=== PATIENT | male | born 1945 | race Asian ===

== ENCOUNTER 2020-04-04 00:50 | Inpatient (IN) | payer MEDICARE ==
[2020-04-04 01:45] LABS: #Lymphocytes 0.9 thou/uL (1.20-3.40); #Monocytes 0.5 thou/uL (0.11-0.59); #Neutrophils 10.4 thou/uL (1.40-6.50); %Basophils 0.4 % (0.0-1.0); %Eosinophils 0.3 % (0.0-10.0); %Lymphocytes 7.4 % (21.0-51.0); %Monocytes 3.9 % (0.0-10.0); %Neutrophils 88.1 % (42.0-75.0); Hemoglobin 11.5 g/dL (14.0-18.0); Mean Corpuscular HGB CONC 34.2 g/dL (32.0-36.0); Mean Corpuscular Hemoglobin 33.2 pg (27.0-31.0); Mean Platelet Volume 6.9 fL (7.4-10.4); Platelet Count 262 thou/uL (130-400); Red Blood Cell (RBC) Count 3.47 mill/uL (4.70-6.10); White Blood Cell (WBC) Count 11.8 thou/uL (4.8-10.8)
[2020-04-04 02:13] LABS: Anion Gap 19 mmol/L (10-20); BUN (Urea Nitrogen) 19 mg/dL (8.4-25.7); Calc. Creatinine Clearance 0 mL/min (70-130); Carbon Dioxide 20 mmol/L (23-31); Chloride 99 mmol/L (98-107); Estimated GFR-MDRD 33; Glucose 196 mg/dL (83-110); Sodium 135 mmol/L (136-145)
[2020-04-04 02:16] LABS: Potassium 2.6 mmol/L (3.5-5.1)
[2020-04-04] MEDS ORDERED: Potassium Chloride 20 MEQ TAB ONE (02:44)
[2020-04-04] MEDS ORDERED: Enoxaparin Sodium 60 MG/0.6 ML SYRINGE ONE (02:49)
--- NOTE | 2020-04-04 03:02 | PDOC.HHP ---
Hospitalist HPI - History of Present Illness chest pain History of Present Illness: PCP; Dr. Garrett Patient presents for evaluation of chest pain, Patient presents for evaluation of Transfer from [place]. Patient presented for chest pain at that facility at 2300 hrs. on 12/2019 his initial set of vital signs had a blood pressure of 95/67 and a pulse rate of 66. His EKG shows rate controlled atrial fibrillation with no ST segment changes chest x-ray shows cardiomegaly with pacemaker wire placement laboratory analysis show a normal white count hemoglobin of 11 and normal platelets patient's troponin is slightly elevated at 0.034. The patient has a very elevated BNP level of 1900. Patient's metabolic panel reveals a potassium of 2.3. A creatinine of 2. Oral potassium was given. Aspirin and Lasix. ED Course: Vital Signs: BP: 100/65, Pulse: 67, Resp: 16, Temp: 97.5 (Oral), O2 sat: 100 on (Room Air), Time: 04/04/2020 01:07. Medication administration: potassium chloride oral 40 mEq Oral Given 03:00 04/04/2020 Lovenox 1 mg/kg Subcutaneous Given 02:59 04/04/2020 Hospitalist Results - Labs Result Diagrams: 04/04/20 01:38 04/04/20 01:38 Lab results: WBC 11.8 thou/uL (4.8-10.8) H 04/04/20 01:38 Hgb 11.5 g/dL (14.0-18.0) L 04/04/20 01:38 Hct 33.7 % (42.0-52.0) L 04/04/20 01:38 MCV 97.0 fL (78.0-98.0) 04/04/20 01:38 Plt Count 262 thou/uL (130-400) 04/04/20 01:38 Neutrophils % 88.1 % (42.0-75.0) H 04/04/20 01:38 Sodium 135 mmol/L (136-145) L 04/04/20 01:38 Potassium 2.6 mmol/L (3.5-5.1) L* 04/04/20 01:38 Chloride 99 mmol/L (98-107) 04/04/20 01:38 Carbon Dioxide 20 mmol/L (23-31) L 04/04/20 01:38 BUN 19 mg/dL (8.4-25.7) 04/04/20 01:38 Creatinine 1.97 mg/dL (0.7-1.3) H 04/04/20 01:38 Glucose 196 mg/dL (83-110) H 04/04/20 01:38 Calcium 8.0 mg/dL (7.8-10.44) 04/04/20 01:38 Troponin I 0.058 ng/mL (< 0.028) H 04/04/20 01:38 B-Natriuretic Peptide 1162.4 pg/mL (0-100) H 04/04/20 01:38 - EKG Interpretation EKG: Rate of 73 atrial fibrillation with occasional premature ventricular contraction. Normal axis QRS duration is widened. Patient there is 0.[address] segment elevation in lead III. Lead V4 has J-point elevation of approximately 1 mm. This pattern is not consistent with a ST elevation myocardial infarction.
[2020-04-04 05:49] VITALS: BMI 17.6
[2020-04-04] MEDS ORDERED: Nitroglycerin 2% Ointment 1 INCH/1 GM Packet TOP SCH (06:00)
[2020-04-04] MEDS ORDERED: Sodium Chloride 0.9% (PF) 10 ML VIAL FS PRN (06:15)
[2020-04-04] MEDS: Ondansetron PF 4 MG/2 ML Vial IVP PRN ×2 (06:44→07:42)
[2020-04-04 07:13] LABS: Troponin I 5.991 ng/mL (< 0.028)
[2020-04-04] MEDS ORDERED: Promethazine HCl 25 MG/ML VIAL SLOW IVP SCH (07:45)
[2020-04-04] MEDS ORDERED: Ondansetron PF 4 MG/2 ML Vial IVP SCH (07:45)
[2020-04-04 07:49] VITALS: TEMP 97.5
[2020-04-04] MEDS ORDERED: Potassium Chloride 20 MEQ in Premix Bag 1 BAG IVPB SCH (09:00)
[2020-04-04] MEDS ORDERED: Pantoprazole 40 MG VIAL IVP SCH (09:00)
[2020-04-04 09:16] VITALS: BP 105/67
[2020-04-04] MEDS ORDERED: Nitroglycerin 0.4 MG TAB (25 Tab Bottle) SL PRN (09:44)
[2020-04-04] MEDS ORDERED: Guaifenesin DM 100-10/5 ML UDCUP PO PRN (09:44)
[2020-04-04] MEDS ORDERED: Acetaminophen 325 MG TAB PO PRN (09:44)
[2020-04-04] MEDS ORDERED: Potassium Chloride 20 MEQ in Lactated Ringer's 1,000 ML IV SCH (09:45)
[2020-04-04 09:50] LABS: Troponin I 22.972 ng/mL (< 0.028)
[2020-04-04] MEDS ORDERED: Vancomycin HCl 25 MG/ML Oral PO SCH (10:00)
[2020-04-04] MEDS: Morphine 2 MG/ML VIAL SLOW IVP PRN ×2 (10:33→10:42)
--- NOTE | 2020-04-04 11:28 | HP ---
REASON FOR ADMISSION: Non-ST elevation [place], C difficile colitis, acute kidney injury, CHF exacerbation with likely underlying cardiomyopathy, hypokalemia. HISTORY OF PRESENT ILLNESS: Please note, the patient is a very poor historian. He apparently had the chest pain and had gone to [place] [facility]. He says that he has had chest pain on and Sunday, which was a constant pain. This kind of resolved and the patient started to have diarrhea from last 2 days, which was perfuse watery and smelly. He has also had intractable nausea and vomiting. He has not been able to keep anything down. Currently, he has no complaints of chest pain. He still has diarrhea. His C difficile stool test has come back positive. The patient is very hard of hearing as well. PAST MEDICAL AND SURGICAL HISTORY: History of coronary artery disease with prior stent. He has had prior AICD placed, which apparently the battery is run out and he has not had any replacement and the details of which is not so sure. Diabetes mellitus type 2, dyslipidemia, appendectomy. CURRENT MEDICATIONS: The patient states he stopped all his medications except for amlodipine, which is not sure of the exact dose. He says it was not doing any good, but is unable to explain anything further. ALLERGIES: NO KNOWN DRUG ALLERGIES. PERSONAL HISTORY: Smokes occasionally. Does not abuse alcohol or drugs. Lives with his . FAMILY HISTORY: He states both his parents are . The mother was in her 70s and father was in his 80s. He does not know the exact cause of their . CODE STATUS: Full. Power of insurance defense attorney is his . REVIEW OF SYSTEMS: CONSTITUTIONAL: Negative for weight loss or gain, ability to conduct usual activities. SKIN: Negative for rash, itching. EYES: Negative for double vision, pain. ENT/MOUTH: Negative for nose bleeding, neck stiffness, pain, tenderness. CARDIOVASCULAR: Negative for palpitations, dyspnea on exertion, orthopnea. RESPIRATORY: Negative for shortness of breath, wheezing, cough, hemoptysis, fever or night sweats. GASTROINTESTINAL: Negative for poor appetite, abdominal pain, heartburn, nausea, vomiting, constipation, or diarrhea. GENITOURINARY: Negative for urgency, frequency, dysuria, nocturia. MUSCULOSKELETAL: Negative for pain, swelling. NEUROLOGIC/PSYCHIATRIC: Negative for anxiety, depression. ALLERGY/IMMUNOLOGIC: Negative for skin rash, bleeding tendency. PHYSICAL EXAMINATION: GENERAL: The patient is a 75-year-old male, who is currently not in any acute distress. VITAL SIGNS: Blood pressure 100/66, pulse 66 per minute, respiratory rate 18 per minute, temperature 97.5 degrees Fahrenheit, and saturating 100% on room air. NECK: Supple. There is elevated JVD. HEENT: Eyes; extraocular muscles intact. Pupils reacting to light. Oral cavity, mucous membranes are dry. No exudates or congestion. CARDIOVASCULAR SYSTEM: S1 and S2 heard. Murmur plus. RESPIRATORY: Air entry 1+ bilateral. Scattered rhonchi. No rales or wheezes. ABDOMEN: Soft. Bowel sounds heard. No tenderness, rigidity, or guarding. EXTREMITIES: Mild peripheral edema. No calf tenderness. VASCULAR SYSTEM: Peripheral pulses 1+ bilateral. No ischemic ulcerations or gangrene. CENTRAL NERVOUS SYSTEM: No gross focal motor deficits noted. 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 PSYCHIATRIC SYSTEM: The patient's mood is euthymic. No hallucinations or delusions. LABORATORY DATA: EKG done shows bifascicular block at 66 beats per minute, has underlying atrial fibrillation, which is rate controlled. Chest x-ray done shows no acute cardiopulmonary process. Stool for C difficile is positive. White count of 11, H and H of 11 and 33, platelet count is 262, MCV 97 with 88% neutrophils. Potassium 2.6, serum bicarb 20, BUN 19, creatinine 1.9, and serum glucose 196. Troponin has gone up to 22.97. CK-MB was 1.209 on the first set. BNP 1900. CLINICAL IMPRESSION AND PLAN: The patient will be admitted to telemetry for non-ST elevation myocardial infarction, acute kidney injury, Clostridium difficile colitis, multiple electrolyte abnormalities including acute kidney injury and clinically has moderate dehydration with profuse diarrhea and intractable nausea and vomiting. His BNP is elevated. Likely, the patient has underlying cardiomyopathy. He will be on Lovenox 50 mg subcu q.12 hourly and will be closely monitored for any bleeding with Clostridium difficile colitis and underlying inflammation in the colon. He will be on aspirin 81 mg, Lipitor 40 mg daily. This was a small dose of Lopressor, which will be discontinued if he gets bradycardic. Nitroglycerin paste half-inch q.[address] him on lactated Ringer's with 20 mEq of potassium at 75 mL per hour. Vancomycin 125 mg orally q.6 hourly for Clostridium difficile. His electrolytes will be slowly corrected. Echo with 2D Doppler for LV function will be obtained. A COVID-19 PCR result is pending. We will obtain a printout of his AICD/pacemaker to see if it is working. The patient has multiple medical issues. His prognosis is guarded. We will continue to closely monitor him on telemetry. I have tried calling, Ms. Andi Colon, the patient's spouse on [phone] and I am unable to talk to her. I am unable to connect to her. Job ID: [id number]
--- NOTE | 2020-04-04 11:49 | CON ---
DATE OF CONSULTATION: 04/04/2020 INDICATION FOR CONSULTATION: A 75-year-old patient with chest pain. HISTORY OF PRESENT ILLNESS: This is a very unfortunate 75-year-old gentleman, who is almost deaf, has a history of coronary artery disease, has undergone angioplasty and stent placement to uncertain vessel or vessels. He has also has an implantable AICD, uncertain of his past cardiac history. He is a very poor historian. He is unable to give much further history, but he was admitted after he complained of chest pain. He has been having nausea and vomiting and diarrhea for several days. He was hypokalemic with a potassium of 2.6. His troponin I was elevated slightly at 0.058, it has increased up to 5.9, and it further increased to 22.9. EKG did show atrial fibrillation with right bundle branch block, occasional PVCs and what appears to be an anterior septal myocardial infarction, which may be evolving with uncertain of his past medical history. At this time, the patient also has C. diff with diarrhea, which is due to C. diff and also has been complaining of some nausea and vomiting. He is not a very good candidate at this time to take to the cardiac solar lab technician due to his GI issues and he continues to have some chest discomfort, but at this time, no further acute ST-segment elevation on the EKG, but he continued to have a right bundle branch block. He also has had some intermittent nonsustained ventricular tachycardia, but does have a defibrillator in place. We do not have any history. I suspect he has a cardiomyopathy, which may be ischemic in nature, but certainly has a defibrillator, which may assist with his nonsustained ventricular tachycardia. At times, it appears he does have some P-waves, but overall appears to be in atrial fibrillation. PAST MEDICAL HISTORY: Very difficult to ascertain, but he does apparently give a history of an irregular heart rate in the past. He also has a history of defibrillator and coronary artery disease and stent placement. Otherwise, I am uncertain of his past medical history. He has not been taking his medications, so uncertain, which medicines he is taking. He does have a history of hyperlipidemia; however, according to the records and has a history of hypertension. He has had an appendectomy performed. SOCIAL HISTORY: He drinks socially, but only on occasional basis. He denies any illicit drug use. He continues to smoke cigarettes, but does not smoke heavily. ALLERGIES: NONE. MEDICATIONS: He has stopped taking his medications. At this time, he has been placed on medications since being admitted to the hospital. He is on; 1. Nitroglycerin paste. 2. Zofran. 3. Potassium replacement. 4. Vancomycin. 5. Lipitor. 6. Lovenox. 7. Metoprolol 12.5 mg b.i.d. 8. Aspirin 81 mg a day. 9. IV fluids. 10. Protonix. REVIEW OF SYSTEMS: Again difficult to obtain. The patient cannot understand and he cannot hear the questions being asked, but otherwise appears to be relatively stable. Obviously, appears to be very ill gentleman. He did tell me he has lost about 10 pounds in the last month or so due to his nausea, vomiting, and diarrhea. PHYSICAL EXAMINATION: GENERAL: Reveals a very ill-appearing gentleman, who is deaf, small-statured. VITAL SIGNS: Weight is 102 pounds. Blood pressure is 105/67, heart rate is 80 and irregular at this time, respiratory rate is 16, and O2 saturation is 100%. He is afebrile. HEENT: Shows the head to be normocephalic and atraumatic. No significant abnormalities noted. Carotid pulses appear to be present. I did not hear any significant bruits. CHEST: Clear anteriorly and posteriorly. There were no significant rales, rhonchi, or wheezing noted. CARDIOVASCULAR: Reveals an irregular rhythm. There were no gross murmurs noted. ABDOMEN: Soft. He has increased hyperactive bowel sounds. He presently is having diarrhea. EXTREMITIES: Show no clubbing or cyanosis. I cannot palpate pedal pulses. NEUROLOGIC: Difficult to completely evaluate the patient, but appears to be no gross focal motor deficits. LABORATORY DATA: Shows the troponin I as noted above. Potassium is 2.6, it is being replaced. Sodium is 135, BUN is 19, creatinine is 1.97, and blood sugar is 196. WBCs 11.8, hemoglobin 11.5, hematocrit 33.7, and platelet count 262,000. His BNP was 1162. EKG is noted above. IMPRESSION AND PLAN: 1. Elderly gentleman, 75-year-old with apparently cardiomyopathy. He is status post automatic implantable cardioverter-defibrillator implant and history of stent placement, most likely has ischemic cardiomyopathy, presented with chest pain after having severe nausea, vomiting, and diarrhea for several days with hypokalemia. At this time, he also has been diagnosed with C. diff, which is Clostridium difficile. At this time, we will continue to monitor this patient despite having cardiac enzyme elevation. He is a very poor candidate to take to the cardiac solar lab technician with his continued significant diarrhea and nausea and vomiting. 2. History of dyslipidemia. We will try to see if the patient can maintain his statin medications. 3. History of hypertension. He is already on metoprolol, obviously he will need to be on this medication indefinitely for his cardiomyopathy and coronary artery disease. At this time, an echocardiogram has been requested, it has not yet been performed. We are still also waiting on his test to determine whether or not he has COVID-19. Further recommendations will depend on the results of the echocardiogram and how the patient progresses, but at this time, the patient obviously is in the somewhat difficult situation. His prognosis is not good. We are more than happy to continue to follow the patient with you and we will continue conservative therapy at this time. He will likely need a cardiac cath when possible. Job ID: [id number] VIOLET
[2020-04-04] MEDS ORDERED: Magnesium 5 GM/10 ML Abboject SYRINGE ONE (12:23)
[2020-04-04 14:43] LABS: SARS-CoV-2 MS2 Positive; SARS-CoV-2 N Gene Negative; SARS-CoV-2 S Gene Negative; SARS-CoV-2 by NAA Not Detected (NotDetected); SARS-CoV-2 orf1ab Negative
[2020-04-04] MEDS ORDERED: Atorvastatin Calcium 40 MG TAB PO SCH (21:00)
[2020-04-04] MEDS ORDERED: Metoprolol Tartrate 25 MG TAB PO SCH (21:00)
[2020-04-04] MEDS ORDERED: FLU VACC QS2020-21(65YR UP)/PF 240 MCG/0.7 ML SYRINGE IM ONE (21:00)
[2020-04-04] MEDS ORDERED: Enoxaparin Sodium 40 MG/0.4 ML SYRINGE SC SCH (21:00)
[2020-04-05] MEDS ORDERED: Aspirin Chewable 81 MG TAB PO SCH (09:00)
--- NOTE | 2020-04-05 15:18 | DIS ---
DATE OF ADMISSION: 04/04/2020 DATE OF DISCHARGE: 04/04/2020 DATE OF : 04/04/2020. TIME OF : 12:48 p.m. PRIMARY CAUSE OF : Non-ST elevation myocardial infarction, Clostridium difficile colitis, congestive heart failure exacerbation with systolic dysfunction and cardiomyopathy, acute kidney injury, hypokalemia, all the above from one day. FACTORS CONTRIBUTING TO : Coronary artery disease with prior stent, diabetes mellitus type 2, dyslipidemia. BRIEF COURSE DURING HOSPITALIZATION: The patient initially was brought to emergency room by his for complaints of chest pain. The patient was initially taken to [place] [facility] from where he was transferred here. He had complaints of shortness of breath, chest pain, and severe watery diarrhea. His stool test came back positive for COVID. The patient had severe electrolyte abnormality due to diarrhea. This was aggressively being replaced. His troponin also slowly started to escalate and was trending up to 22. Dr. Dodd lockstitch waistline joiner had evaluated the patient. The plan was to stabilize him prior to taking him to cardiac cath. The patient also had an AICD, which was placed more than 13 years ago at [facility] with the leads not being defective from the time it was placed. Around 12:15 p.m., the patient went into torsade. CPR was initiated and ACLS protocol was followed. After nearly 30 minutes of ACLS protocol being pursued, the patient did not make any recovery. He was pronounced at 12:48 p.m. I have given complete updates to at bedside. His body will be released to home per protocol. Job ID: [id number]
== END 2020-04-04 14:47 | disposition expired ==
LOC: ERS 00:50 → 2NO 02:26 → OBSVTOIN 09:44
PROVIDERS: ADMIT Internal Medicine; ATTEND Internal Medicine
PROC: 5A12012 Performance of Cardiac Output, Single, Manual (ICD-10-PCS; principal; 2020-04-04)
PROC: 0BH17EZ Insertion of Endotracheal Airway into Trachea, Via Natural or Artificial Opening (ICD-10-PCS; 2020-04-04)
DX: I21.4 Non-ST elevation (NSTEMI) myocardial infarction (principal); I50.23 Acute on chronic systolic (congestive) heart failure; N17.9 Acute kidney failure, unspecified; A04.72 Enterocolitis due to Clostridium difficile, not specified as recurrent; I48.91 Unspecified atrial fibrillation; E78.00 Pure hypercholesterolemia, unspecified; E11.9 Type 2 diabetes mellitus without complications; F17.210 Nicotine dependence, cigarettes, uncomplicated; I11.0 Hypertensive heart disease with heart failure; E87.6 Hypokalemia; I25.10 Atherosclerotic heart disease of native coronary artery without angina pectoris; E86.0 Dehydration; I45.10 Unspecified right bundle-branch block; I25.5 Ischemic cardiomyopathy; Z20.828 Contact with and (suspected) exposure to other viral communicable diseases; Z95.5 Presence of coronary angioplasty implant and graft; I25.2 Old myocardial infarction; Z95.810 Presence of automatic (implantable) cardiac defibrillator; Z90.49 Acquired absence of other specified parts of digestive tract
CPT/HCPCS: 36415; 36416; 80048; 83735; 83880; 84484; 85025; 87324; 87449; 87635; 93005; 94760; 96372; 96374; 96375; C9113; G0378; J1650; J2270; J2405; J3480; J7120; U0003